=== PATIENT | male | born 1995 | race Caucasian/White ===

== ENCOUNTER 2024-05-24 22:17 | Emergency (ER) | payer MEDICAID, SELFPAY ==
[2024-05-24 22:17] VITALS: BP 162/101; PULSE 95; RESP 17; TEMP 36.6; O2SAT 98; BMI 39.2
[2024-05-24 22:21] VITALS: BP 162/101; PULSE 95; RESP 18; TEMP 36.6; O2SAT 97
[2024-05-24 22:45] LABS: Absolute Neutrophil Count 7.6 X10^3/uL (2.0-7.7); Basophil# 0.07 X10^3/uL; Basophil% 0.7 % (0-1); Eosinophil# 0.12 X10^3/uL; Eosinophils% 1.1 % (0-5); Hematocrit 49.7 % (40-54); Lymphocyte % 22.6 % (19-41); Mean Corp Hgb Conc 32.2 g/dL (32-36); Mean Corpuscular Volume 83.8 fL (80-94); Mean Platelet Vol. 10.7 fl (6.2-12.0); Monocyte# 0.41 X10^3/uL; Monocyte% 3.9 % (0-10); NRBC Flagged by Analyzer 0 % (0-5); Neutrophil # 7.58 X10^3/uL (2.7-7.7); Neutrophil % 71.1 % (47-70); Platelet Count 306 K/mm3 (150-450); RBC Distribution Width CV 13.1 % (11.6-14.6); RBC Distribution Width SD 40.1 fl (35.1-43.9); Red Blood Count 5.93 M/mm3 (4.6-6.2); White Blood Count 10.6 K/mm3 (4.4-11.0)
[2024-05-24] MEDS: Ketorolac 30 MG/ML Syringe IV (22:45)
[2024-05-24] MEDS: Ondansetron 4 MG/2 ML Vial IV (22:45)
[2024-05-24] MEDS: 0.9% Normal Saline (1000mL) 1,000 ML 999 ML IV (22:45)
[2024-05-24 23:03] LABS: AST(SGOT) 18 U/L (15-37); Alanine Aminotransfer ALT/SGPT 29 U/L (16-61); Albumin, Serum 3.3 g/dL (3.2-5.0); Alkaline Phosphatase 91 U/L (45-117); Anion Gap 9 (5-15); BUN 8 mg/dL (7-18); BUN/Creat Ratio 7.1 RATIO (10-20); Bilirubin, Direct 0.12 mg/dL (0.00-0.30); Calcium,Total 8.8 mg/dL (8.5-10.1); Chloride 106 mmol/L (98-107); Creatinine, Serum 1.12 mg/dL (0.70-1.30); EST Glomerular Filtration Rate 82 mL/min (>60); Est Glom Filt Rate - Afr Amer 99 mL/min (>60); Estimated Creatinine Clearance 131.14 ml/min; Globulin 4.4 g/dL (2.2-4.2); Glucose 163 mg/dL (74-106); Lipase 15 U/L (13-75); Potassium 3.9 mmol/L (3.5-5.1); Protein, Total 7.7 g/dL (6.4-8.2); Sodium Level 136 mmol/L (136-145)
--- NOTE | 2024-05-25 00:07 | EX.ED.DYSGE1 ---
HPI History of Present Illness Chief Complaint: Nausea/Vomiting/Diarrhea Informant: patient and parent Narrative Narrative: Patient is a 29-year-old male with past medical history of schizophrenia. He states his stomach felt upset last night but he was able to go to sleep and when he woke up he states he was feeling better. However as the day past his symptoms returned and he began with bouts of nausea and vomiting. He denies any known sick contacts but based on the recurrent symptoms he presents for evaluation [facility] Medical History (Updated 05/25/24 @ 00:[address] Freddy Sims, DO) Panic attack Anxiety Schizophrenia Home Medications ?Medication ?Instructions ?Recorded ?Last Taken ?Type ondansetron 4 mg disintegrating 4 mg PO TID PRN nausea and 05/25/24 Unknown Rx tablet vomiting #21 tabs penicillin V potassium 500 mg 500 mg PO BID 10 days #20 tabs 05/25/24 Unknown Rx tablet Allergy/AdvReac Type Severity Reaction Status Date / Time No Known Allergies Allergy Verified 05/24/24 22:18 Social History Smoking Status: Never smoker [facility] ED Constitutional Constitutional ED: Denies chills or fever(s) Eyes Eyes: Denies change in vision ENT ENT ED: Denies rhinorrhea or sore throat Cardiovascular Cardiovascular: Denies chest pain Respiratory/Chest Respiratory/Chest: Denies cough or dyspnea Gastrointestinal Gastrointestinal: Reports abdominal pain, nausea and vomiting; Denies diarrhea Genitourinary Genitourinary ED: Denies dysuria Musculoskeletal Musculoskeletal: Denies myalgias Integumentary Denies rash Neurologic Neurologic: Denies headache(s) Hematologic/Lymphatic Hematologic/Lymphatic: Denies easy bleeding or easy bruising EXAM Physical Exam Const Vital Signs: 05/24/24 22:17 05/24/24 22:21 05/25/24 00:19 Temperature 98 F 98 F 98.5 F Temperature Source Oral Oral Pulse Rate 95 95 78 Respiratory Rate 17 18 15 Blood Pressure 162/101 H 162/101 H 151/74 H Blood Pressure Mean 121 121 99 Pulse Ox 98 97 99 Oxygen Delivery Method Room Air Room Air Positive well nourished and well developed General Appearance ED: well developed; Negative for pallor HEENT HEENT Narrative: There is bilateral tonsillar hypertrophy at +2 with diffuse erythema and scant exudates. No trismus change in voice or difficulty with secretions Eyes PERRL and EOMs intact bilaterally General Eye ED: Negative for scleral icterus Neck supple Neck Narrative: Positive anterior cervical of adenopathy noted Resp normal respiratory effort and clear to auscultation bilaterally Cardio regular rate and regular rhythm GI non-tender, non-distended and no masses Auscultation: hyperactive bowel sounds Palpation: soft Extremity normal to inspection Neuro oriented x3, CN's II-XII intact bilaterally and no sensory deficits noted Sensorium / Orientation: alert Motor Exam: strength 5/5 throughout Psych mental status grossly normal Skin no rashes or lesions noted General Skin Exam: Negative for jaundice or pallor MDM MDM MDM Narrative Medical decision making narrative: Patient arrived to ER hypertensive but otherwise with stable vitals. His abdomen is soft and nonsurgical and therefore I do not feel there is need for an emergent CT scan at this time. Differential diagnosis is for viral infection such as norovirus versus is rotavirus. There is potential for strep throat versus COVID versus influenza versus RSV. Patient could also have atypical biliary colic or pancreatitis. Secondary to his basic labs with strep and viral swabs were obtained. Labs revealed no clinically significant findings and strep swab was positive. He does not have signs of peritonsillar abscess there is no airway compromise or obstruction and he has had no bouts of vomiting since treatment in the ER. Therefore do not feel there is need for further evaluation and can be discharged home with symptomatic care. History & Record Review Discussion w/independent historian: Patient and Family Lab Data Attestation: I reviewed the patient's lab results. Labs: Laboratory Results - last 24 hr 05/24/24 22:23 WBC 10.6 RBC 5.93 Hgb 16.0 Hct 49.7 MCV 83.8 MCH 27.0 MCHC 32.2 RDW Std Deviation 40.1 RDW Coeff of Wai 13.1 Plt Count 306 MPV 10.7 Immature Gran % (Auto) 0.600 Neut % (Auto) 71.1 H Lymph % (Auto) 22.6 [place] % (Auto) 3.9 Eos % (Auto) 1.1 Baso % (Auto) 0.7 Absolute Neuts (auto) 7.6 Absolute Lymphs (auto) 2.40 Nucleated RBC % 0 Sodium 136 Potassium 3.9 Chloride 106 Carbon Dioxide 22.0 Anion Gap 9 BUN 8 Creatinine 1.12 Estim Creat Clear Calc 131.14 Est GFR (MDRD) Af Amer 99 Est GFR (MDRD) Non-Af 82 BUN/Creatinine Ratio 7.1 L Glucose 163 H Calcium 8.8 Total Bilirubin 0.40 Direct Bilirubin 0.12 AST 18 ALT 29 Alkaline Phosphatase 91 Total Protein 7.7 Albumin 3.3 Globulin 4.4 H Lipase 15 Discharge Plan Triage Chief Complaint: Nausea/Vomiting/Diarrhea ED Provider: Freddy Sims Dx/Rx/DC Orders Clinical Impression: Acute streptococcal pharyngitis, Nausea & vomiting, Schizophrenia Instructions: ED Pharyngitis, Strep (Confirmed) Prescriptions: New ondansetron 4 mg tablet,disintegrating 4 mg PO TID PRN (Reason: nausea and vomiting) Qty: 21 0RF penicillin V potassium 500 mg tablet 500 mg PO BID 10 Days Qty: 20 0RF Primary Care Provider: Care Physician,No Primary Referrals: Danny Barnes MD [Med Staff - Active Staff] - Care Physician,No Primary [Primary Care Provider] - Activity Restrictions/Additional Instructions: You tested positive for strep throat and this is most likely the cause of your nausea and vomiting. Use Zofran to control any further bouts of nausea and vomiting and take the antibiotic as directed to resolve the strep throat. After approximately 2 days of antibiotics you should have improvement of symptoms. Keep yourself well-hydrated and return to the ER should you have any further concerns Print Language: B[place]ian Disposition Disposition: Home, Self Care Discharge Date/Time: 05/25/24 00:20
[2024-05-25] MEDS: Penicillin Vk 250 MG Tablet 500 MG PO (00:17)
[2024-05-25 00:19] VITALS: BP 151/74; PULSE 78; RESP 15; TEMP 36.9; O2SAT 99
== END 2024-05-25 00:20 | disposition home or self-care (01) ==
PROVIDERS: Emergency Provider Emergency Medicine; Visit Provider Emergency Medicine
DX: J02.0 Streptococcal pharyngitis (principal); F20.9 Schizophrenia, unspecified; R11.2 Nausea with vomiting, unspecified
CPT/HCPCS: 80048; 80076; 83690; 85025; 87631; 87651; 96361; 96374; 96375; 99285; A4216; J2405